=== PATIENT | female | born 1980 | race African-American/Black ===

== ENCOUNTER 2017-01-18 18:03 | Emergency (ER) | payer OTHER | END 2017-01-18 23:17 | disposition home or self-care (01) | LOC: FER 18:03 | DX: T81.31XA Disruption of external operation (surgical) wound, not elsewhere classified, initial encounter (principal); I10 Essential (primary) hypertension; F17.210 Nicotine dependence, cigarettes, uncomplicated; Z98.51 Tubal ligation status; Y83.8 Other surgical procedures as the cause of abnormal reaction of the patient, or of later complication, without mention of misadventure at the time of the procedure ==

== ENCOUNTER → 2021-04-18 | Day surgery (SDC) | payer OTHER ==
[~2021-04-18] VITALS: Ht 167.6 cm; Wt 47.2 kg
[~2021-04-18] MED LIST: BACLOFEN 10MG T10 MG PO; MEDROL 4MG DOSEP4 MG PO
[2021-04-18 07:19] LABS: HCG (URINE) SCREEN NEGATIVE (NEGATIVE)
== END | disposition home or self-care (01) ==
LOC: FAS 06:58
PROVIDERS: Surgery
DX: D24.2 Benign neoplasm of left breast (principal); J45.909 Unspecified asthma, uncomplicated; F32.9 Major depressive disorder, single episode, unspecified; F17.210 Nicotine dependence, cigarettes, uncomplicated
CPT/HCPCS: 84703; J1100; J2250; J2405; J2704; J3010; J7120